=== PATIENT | female | born 1985 | race Two or more races ===

== ENCOUNTER 2021-09-11 15:22 | Emergency (ER) | payer OTHER ==
[2021-09-11 15:39] VITALS: BP 120/74; PULSE 81; TEMP 97.8; BMI 23.8
[2021-09-11] MEDS ORDERED: METHOTREXATE SODIUM/PF 25 MG/ML VIAL IM ONE ×2 (16:48→19:26)
[2021-09-11] MEDS ORDERED: LORazepam 1 MG TABLET PO ONE (17:07)
[2021-09-11] MEDS ORDERED: ONDANSETRON *ODT* 4 MG TABLET SL ONE (17:07)
[2021-09-11] MEDS ORDERED: ONDANSETRON *ODT* 4 MG TABLET ONE (17:08)
[2021-09-11] MEDS ORDERED: LORazepam 1 MG TABLET ONE (17:09)
[2021-09-11 18:11] LABS: BASO % 0.4 % (0-2.0); EOS % 0.4 % (0-4.5); HEMATOCRIT 40.2 % (32.4-45.2); HEMOGLOBIN 13.8 GM/dL (10.7-15.3); LYMPH % 32.6 % (8-40); MCH 31.1 pg (25.7-33.7); MCHC 34.4 g/dl (32.0-36.0); MEAN CELL VOLUME 90.6 fl (80-96); MEAN PLT VOLUME 7.5 fl (7.5-11.1); MONO % 5.3 % (3.8-10.2); NEUT % 61.3 % (42.8-82.8); PLATELET COUNT 325 10^3/uL (134-434); RBC 4.43 M/mm3 (3.60-5.2); RDW 12.3 % (11.6-15.6); WHITE BLOOD COUNT 12.8 K/mm3 (4.0-10.0)
[2021-09-11 18:33] LABS: INR 1.01 (0.83-1.09); PROTHROMBIN TIME (PATIENT) 11.6 SEC (9.7-13.0)
[2021-09-11 18:38] LABS: ALBUMIN 3.7 g/dl (3.4-5.0); BLOOD UREA NITROGEN 4.9 mg/dL (7-18); CALCIUM 8.8 mg/dL (8.5-10.1)
[2021-09-11 18:42] LABS: CREATININE 0.6 mg/dL (0.55-1.3)
[2021-09-11 18:43] LABS: BILIRUBIN,TOTAL 0.2 mg/dL (0.2-1); TOT PROT 7.3 g/dl (6.4-8.2)
== END 2021-09-11 21:59 | disposition home or self-care (01) ==
LOC: JER 15:22
DX: O00.102 Left tubal pregnancy without intrauterine pregnancy (principal)
CPT/HCPCS: 36415; 76817-TC; 80053; 84702; 85025; 85610; 86850; 86900; 86901; 99284-25; J9260; Q0162

== ENCOUNTER 2022-04-18 13:38 | Emergency (ER) | payer OTHER ==
[2022-04-18 13:45] VITALS: RESP 18; TEMP 98.2; BMI 25.7
[2022-04-18 14:47] LABS: BASO % 0.5 % (0-2.0); EOS % 0.6 % (0-4.5); HEMATOCRIT 42.2 % (32.4-45.2); HEMOGLOBIN 14.9 GM/dL (10.7-15.3); LYMPH % 34.5 % (8-40); MCH 31.6 pg (25.7-33.7); MCHC 35.3 g/dl (32.0-36.0); MEAN CELL VOLUME 89.5 fl (80-96); MEAN PLT VOLUME 7.2 fl (7.5-11.1); MONO % 6.5 % (3.8-10.2); NEUT % 57.9 % (42.8-82.8); PLATELET COUNT 325 10^3/uL (134-434); RBC 4.72 M/mm3 (3.60-5.2); RDW 12.3 % (11.6-15.6); WHITE BLOOD COUNT 9.3 K/mm3 (4.0-10.0)
[2022-04-18 14:50] LABS: HCG,QUALITATIVE URINE Negative
[2022-04-18 14:57] LABS: EPI CELLS 5 /uL (0-25.1); HYALINE CASTS 0 /uL (0-3.1); PH,URINE 7.5 (5.0-8.0); URINE APPEARANCE CLEAR; URINE BACTERIA 73 /uL (0-1359); URINE BILIRUBIN NEGATIVE (NEGATIVE); URINE COLOR YELLOW; URINE GLUCOSE (UA) NEGATIVE (NEGATIVE); URINE KETONE NEGATIVE (NEGATIVE); URINE LEUK ESTERASE NEGATIVE (NEGATIVE); URINE NITRITE NEGATIVE (NEGATIVE); URINE PROTEIN NEGATIVE (NEGATIVE); URINE RBC 43 /uL (0-23.9); URINE UROBILINOGEN 0.2 mg/dL (0.2-1.0); URINE WBC 3 /uL (0-25.8)
[2022-04-18 15:15] LABS: ALBUMIN 3.7 g/dl (3.4-5.0); BLOOD UREA NITROGEN 6.9 mg/dL (7-18); CALCIUM 9.1 mg/dL (8.5-10.1)
[2022-04-18 15:18] LABS: CREATININE 0.6 mg/dL (0.55-1.3)
[2022-04-18 15:20] LABS: BILIRUBIN,TOTAL 0.4 mg/dL (0.2-1); TOT PROT 7.6 g/dl (6.4-8.2)
[2022-04-18] MEDS ORDERED: PANTOPRAZOLE 40 MG TABLET PO ONE (17:33)
[2022-04-18 17:57] VITALS: BP 130/65; PULSE 65
== END 2022-04-18 17:58 | disposition home or self-care (01) ==
LOC: JER 13:38
DX: O23.41 Unspecified infection of urinary tract in pregnancy, first trimester (principal); Z3A.01 Less than 8 weeks gestation of pregnancy
CPT/HCPCS: 36415; 76817-TC; 80053; 81003; 84702; 84703; 85025; 87086; 99284-25

== ENCOUNTER 2022-04-20 17:36 | Emergency (ER) | payer OTHER ==
[2022-04-20 17:43] VITALS: BP 113/76; PULSE 82; RESP 18; TEMP 97.8; BMI 25.7
[2022-04-20 20:14] LABS: BASO % 0.3 % (0-2.0); EOS % 0.8 % (0-4.5); HEMATOCRIT 43.5 % (32.4-45.2); HEMOGLOBIN 14.5 GM/dL (10.7-15.3); LYMPH % 36.2 % (8-40); MCH 30.6 pg (25.7-33.7); MCHC 33.4 g/dl (32.0-36.0); MEAN CELL VOLUME 91.6 fl (80-96); MEAN PLT VOLUME 8.1 fl (7.5-11.1); NEUT % 56.7 % (42.8-82.8); PLATELET COUNT 347 10^3/uL (134-434); RBC 4.75 M/mm3 (3.60-5.2); RDW 12.1 % (11.6-15.6); WHITE BLOOD COUNT 11.6 K/mm3 (4.0-10.0)
[2022-04-20 20:37] LABS: ALBUMIN 3.9 g/dl (3.4-5.0); BLOOD UREA NITROGEN 7.8 mg/dL (7-18); CALCIUM 9.4 mg/dL (8.5-10.1)
[2022-04-20 20:40] LABS: CREATININE 0.6 mg/dL (0.55-1.3)
[2022-04-20 20:42] LABS: BILIRUBIN,TOTAL 0.5 mg/dL (0.2-1); TOT PROT 8.1 g/dl (6.4-8.2)
== END 2022-04-20 21:45 | disposition home or self-care (01) ==
LOC: JER 17:36
DX: O26.851 Spotting complicating pregnancy, first trimester (principal); Z3A.01 Less than 8 weeks gestation of pregnancy
CPT/HCPCS: 36415; 76817-TC; 80053; 84702; 85025; 86850; 86900; 86901; 99284-25

== ENCOUNTER 2022-04-27 14:18 | Emergency (ER) | payer OTHER ==
[2022-04-27 14:27] VITALS: RESP 18; BMI 24.0
[2022-04-27 18:26] VITALS: TEMP 97.8
[2022-04-27] MEDS ORDERED: ACETAMINOPHEN 500 MG TABLET (FP) PO ONE (18:40)
[2022-04-27] MEDS ORDERED: ACETAMINOPHEN 500 MG TABLET (FP) ONE (18:51)
[2022-04-27 19:08] LABS: URINE APPEARANCE CLEAR; URINE BILIRUBIN NEGATIVE (NEGATIVE); URINE COLOR YELLOW; URINE GLUCOSE (UA) NEGATIVE (NEGATIVE); URINE KETONE NEGATIVE (NEGATIVE); URINE LEUK ESTERASE NEGATIVE (NEGATIVE); URINE NITRITE NEGATIVE (NEGATIVE); URINE PROTEIN NEGATIVE (NEGATIVE); URINE UROBILINOGEN 0.2 mg/dL (0.2-1.0)
[2022-04-27] MEDS ORDERED: METHOTREXATE SODIUM/PF 25 MG/ML VIAL IM ONE (20:20)
[2022-04-27 21:27] VITALS: BP 110/59; PULSE 86
== END 2022-04-27 22:02 | disposition home or self-care (01) ==
LOC: JERFT 14:18 → JER 14:18 → JERFT 22:02
DX: O00.90 Unspecified ectopic pregnancy without intrauterine pregnancy (principal)
CPT/HCPCS: 36415; 76817-TC; 81003; 84702; 87086; 99284-25; J9260

== ENCOUNTER 2022-04-30 18:31 | Emergency (ER) | payer OTHER ==
[2022-04-30 18:39] VITALS: BP 121/80; PULSE 85; RESP 16; TEMP 97.5; BMI 24.1
[2022-04-30] MEDS ORDERED: METHOTREXATE SODIUM/PF 25 MG/ML VIAL IM ONE (22:04)
== END 2022-04-30 22:39 | disposition home or self-care (01) ==
LOC: JER 18:31 → JERFT 18:31 → JER 22:39
PROC: 3E023GC Introduction of Other Therapeutic Substance into Muscle, Percutaneous Approach (ICD-10-PCS; principal; 2022-04-30)
DX: O00.90 Unspecified ectopic pregnancy without intrauterine pregnancy (principal)
CPT/HCPCS: 36415; 76817-TC; 84702; 96372; 99284-25; J9260

== ENCOUNTER 2022-05-04 14:55 | Emergency (ER) | payer OTHER ==
[2022-05-04 15:10] VITALS: BP 116/79; PULSE 77; RESP 18; TEMP 98; BMI 24.1
== END 2022-05-04 18:31 | disposition home or self-care (01) ==
LOC: JERFT 14:55
DX: O00.90 Unspecified ectopic pregnancy without intrauterine pregnancy (principal); Z3A.00 Weeks of gestation of pregnancy not specified
CPT/HCPCS: 36415; 84702; 99283-25

== ENCOUNTER 2022-05-11 10:41 | Emergency (ER) | payer OTHER ==
[2022-05-11 10:52] VITALS: BP 106/51; PULSE 77; RESP 17; TEMP 97.9; BMI 24.9
[2022-05-11 14:38] LABS: BASO % 0.5 % (0-2.0); EOS % 1.2 % (0-4.5); HEMATOCRIT 41.6 % (32.4-45.2); HEMOGLOBIN 14.2 GM/dL (10.7-15.3); LYMPH % 35.9 % (8-40); MCH 30.7 pg (25.7-33.7); MCHC 34.1 g/dl (32.0-36.0); MEAN CELL VOLUME 90.1 fl (80-96); MEAN PLT VOLUME 7.5 fl (7.5-11.1); MONO % 5.5 % (3.8-10.2); NEUT % 56.9 % (42.8-82.8); PLATELET COUNT 320 10^3/uL (134-434); RBC 4.62 M/mm3 (3.60-5.2); RDW 12.4 % (11.6-15.6); WHITE BLOOD COUNT 10.3 K/mm3 (4.0-10.0)
[2022-05-11 15:07] LABS: ALBUMIN 3.6 g/dl (3.4-5.0)
[2022-05-11 15:10] LABS: CREATININE 0.5 mg/dL (0.55-1.3)
[2022-05-11 15:11] LABS: BILIRUBIN,TOTAL 0.5 mg/dL (0.2-1); TOT PROT 7.3 g/dl (6.4-8.2)
== END 2022-05-11 16:39 | disposition home or self-care (01) ==
LOC: JER 10:41
DX: R10.30 Lower abdominal pain, unspecified (principal)
CPT/HCPCS: 36415; 76817-TC; 80053; 84702; 85025; 99284-25

== ENCOUNTER 2022-10-24 15:41 | Emergency (ER) | payer OTHER ==
[2022-10-24 16:12] VITALS: BP 117/64; PULSE 90; RESP 18; TEMP 98.4; BMI 25.0
[2022-10-24 17:56] LABS: BASO % 0.4 % (0-2.0); EOS % 0.7 % (0-4.5); HEMATOCRIT 39.8 % (32.4-45.2); HEMOGLOBIN 14.2 GM/dL (10.7-15.3); LYMPH % 33.4 % (8-40); MCH 31.7 pg (25.7-33.7); MCHC 35.6 g/dl (32.0-36.0); MEAN PLT VOLUME 7.4 fl (7.5-11.1); NEUT % 58.5 % (42.8-82.8); PLATELET COUNT 338 10^3/uL (134-434); RBC 4.47 M/mm3 (3.60-5.2); RDW 12.8 % (11.6-15.6); WHITE BLOOD COUNT 13.6 K/mm3 (4.0-10.0)
[2022-10-24 18:15] LABS: ALBUMIN 3.6 g/dl (3.4-5.0); CALCIUM 9.2 mg/dL (8.5-10.1)
[2022-10-24 18:16] LABS: BLOOD UREA NITROGEN 9.2 mg/dL (7-18)
[2022-10-24 18:19] LABS: EPI CELLS 3 /uL (0-25.1); HYALINE CASTS 0 /uL (0-3.1); URINE APPEARANCE CLEAR; URINE BACTERIA 74 /uL (0-1359); URINE BILIRUBIN NEGATIVE (NEGATIVE); URINE COLOR YELLOW; URINE GLUCOSE (UA) NEGATIVE (NEGATIVE); URINE KETONE NEGATIVE (NEGATIVE); URINE LEUK ESTERASE NEGATIVE (NEGATIVE); URINE NITRITE NEGATIVE (NEGATIVE); URINE PROTEIN NEGATIVE (NEGATIVE); URINE RBC 16 /uL (0-23.9); URINE UROBILINOGEN 0.2 mg/dL (0.2-1.0); URINE WBC 2 /uL (0-25.8)
[2022-10-24 18:19] LABS: CREATININE 0.5 mg/dL (0.55-1.3)
[2022-10-24 18:20] LABS: BILIRUBIN,TOTAL 0.4 mg/dL (0.2-1); TOT PROT 7.5 g/dl (6.4-8.2)
== END 2022-10-24 18:53 | disposition home or self-care (01) ==
LOC: JER 15:41
DX: O20.9 Hemorrhage in early pregnancy, unspecified (principal); Z3A.09 9 weeks gestation of pregnancy
CPT/HCPCS: 36415; 76801-TC; 80053; 81003; 85025; 87086; 99284-25

== ENCOUNTER 2023-05-30 23:00 | Inpatient (IN) | payer OTHER ==
[2023-05-31] MEDS ORDERED: ELECTROLYTE-148 SOLN 1,000 ML IV SCH ×2 (00:05→06:00)
[2023-05-31 00:37] LABS: BASO % 0.7 % (0-2.0); EOS % 1.5 % (0-4.5); HEMATOCRIT 37.6 % (32.4-45.2); HEMOGLOBIN 13.6 GM/dL (10.7-15.3); MCH 32.1 pg (25.7-33.7); MCHC 36.2 g/dl (32.0-36.0); MEAN CELL VOLUME 88.5 fl (80-96); MONO % 9.5 % (3.8-10.2); NEUT % 54.3 % (42.8-82.8); PLATELET COUNT 274 10^3/uL (134-434); RBC 4.25 M/mm3 (3.60-5.2); RDW 13.6 % (11.6-15.6); WHITE BLOOD COUNT 9.3 K/mm3 (4.0-10.0)
[2023-05-31 00:38] LABS: INR 0.99 (0.83-1.09); PROTHROMBIN TIME (PATIENT) 11.5 SEC (9.7-13.0)
[2023-05-31 00:41] LABS: BLOOD UREA NITROGEN 8.6 mg/dL (7-18); CALCIUM 9.5 mg/dL (8.5-10.1); POTASSIUM 3.7 mmol/L (3.5-5.1)
[2023-05-31 00:45] LABS: CREATININE 0.6 mg/dL (0.55-1.3)
[2023-05-31 01:27] VITALS: BMI 26.7
[2023-05-31] MEDS ORDERED: FENTANYL/BUPIVACAINE/NS/PF - PCEA - 50 ML DISP.SYRIN EP ONE ×3 (02:49→12:09)
[2023-05-31] MEDS ORDERED: FENTANYL/BUPIVACAINE/NS/PF - PCEA - 50 ML DISP.SYRIN EP SCH (03:00)
[2023-05-31] MEDS ORDERED: NALOXONE HCL 0.4 MG/ML VIAL IVPUSH PRN (03:00)
[2023-05-31] MEDS ORDERED: BUPIVACAINE HCL/PF 0.25% (2.5MG/ML) 10 ML VIAL ONE ×2 (03:01→12:21)
[2023-05-31] MEDS ORDERED: LIDO 2%/EPI 1:200000 PRESRVFRE (20 ML SDVIAL) ONE (03:02)
[2023-05-31] MEDS ORDERED: ePHEDrine SULFATE 50 MG/1 ML AMPULE ONE (03:21)
[2023-05-31] MEDS ORDERED: BENZOCAINE 20% 57 GM BOTTLE TP PRN (06:56)
[2023-05-31] MEDS ORDERED: oxyCODONE HCL 5 MG TABLET PO PRN (06:56)
[2023-05-31] MEDS ORDERED: WITCH HAZEL 50% (TUCKS) 40 PAD/JAR PAD TP PRN (06:56)
[2023-05-31] MEDS ORDERED: BENZOCAINE 28 GM HEMORRHOIDAL OINTMENT TP PRN (06:56)
[2023-05-31] MEDS ORDERED: BISACODYL 10 MG SUPP.RECT RC PRN (06:56)
[2023-05-31] MEDS ORDERED: METHYLERGONOVINE MALEATE 0.2 MG/1 ML AMP IM PRN (06:56)
[2023-05-31] MEDS ORDERED: OXYTOCIN 20 UNITS in 0.9% NS 20 UNIT/1,000 ML INFUS.BAG IV SCH (07:00)
[2023-05-31] MEDS: FERROUS SO4 325 MG TABLET (FP) PO SCH ×3 (08:49→18:10)
[2023-05-31] MEDS: PRENATAL VITAMINS W/ FOLIC ACID TABLET (FP) PO SCH (09:44)
[2023-05-31] MEDS ORDERED: OXYTOCIN 20 UNITS in 0.9% NS 20 UNIT/1,000 ML INFUS.BAG IV ONE (12:27)
[2023-05-31] MEDS ORDERED: LIDOCAINE HCL 1% PRESERVATIVE FREE - 30ML VIAL ONE (12:28)
[2023-05-31 14:01] LABS: POC NITRAZINE POS
[2023-05-31 15:33] LABS: CORD HCO3 21.8 mmHg (20-29); CORD PCO2 64.7 mmHg (30-78); CORD pH 7.145 (7.14-7.44)
[2023-05-31 15:34] LABS: CORD BASE EXCESS -7.3 mmol/L (0-2); CORD HCO3 21.7 mmHg (20-29); CORD pH 7.198 (7.14-7.44)
[2023-05-31] MEDS: IBUPROFEN 600 MG TABLET (FP) PO PRN (18:10)
[2023-05-31] MEDS: ACETAMINOPHEN 325 MG TABLET (FP) PO PRN (21:27)
[2023-05-31 22:25] VITALS: RESP 18
[2023-06-01] MEDS: ACETAMINOPHEN 325 MG TABLET (FP) PO PRN (06:14)
[2023-06-01 08:37] LABS: BASO % 0.3 % (0-2.0); EOS % 0.8 % (0-4.5); HEMATOCRIT 33.3 % (32.4-45.2); HEMOGLOBIN 11.4 GM/dL (10.7-15.3); LYMPH % 20.6 % (8-40); MCHC 34.3 g/dl (32.0-36.0); MEAN CELL VOLUME 90.5 fl (80-96); MEAN PLT VOLUME 8.1 fl (7.5-11.1); MONO % 7.1 % (3.8-10.2); NEUT % 71.2 % (42.8-82.8); PLATELET COUNT 216 10^3/uL (134-434); RBC 3.67 M/mm3 (3.60-5.2); RDW 13.1 % (11.6-15.6); WHITE BLOOD COUNT 12.9 K/mm3 (4.0-10.0)
[2023-06-01] MEDS: FERROUS SO4 325 MG TABLET (FP) PO SCH ×2 (09:19→11:47)
[2023-06-01] MEDS: IBUPROFEN 600 MG TABLET (FP) PO PRN (09:19)
[2023-06-01] MEDS: PRENATAL VITAMINS W/ FOLIC ACID TABLET (FP) PO SCH (09:19)
[2023-06-01 14:54] VITALS: BP 99/60; PULSE 73; TEMP 97.9
[2023-06-01] MEDS ORDERED: SENNOSIDES/DOCUSATE COMBO (SENNA PLUS) TABLET (UD) PO PRN (22:00)
== END 2023-06-01 15:35 | disposition home or self-care (01) | DRG 560 ==
LOC: JLDR 23:00 → J3W 05-31 16:27
PROVIDERS: ADMIT Obstetrics & Gynecology; ATTEND Obstetrics & Gynecology
PROC: 10E0XZZ Delivery of Products of Conception, External Approach (ICD-10-PCS; principal; 2023-05-31)
PROC: 0KQM0ZZ Repair Perineum Muscle, Open Approach (ICD-10-PCS; 2023-05-31)
DX: O48.0 Post-term pregnancy (principal); Z3A.40 40 weeks gestation of pregnancy; O70.1 Second degree perineal laceration during delivery; O77.0 Labor and delivery complicated by meconium in amniotic fluid; Z37.0 Single live birth
CPT/HCPCS: 36415; 36600; 80048; 82803; 83986-QW; 85025; 85610; 85730; 86780; 86850; 86900; 86901

== ENCOUNTER 2025-01-06 11:21 | Emergency (ER) | payer OTHER ==
[2025-01-06 11:32] VITALS: BP 113/73; PULSE 76; RESP 16; TEMP 98.1; BMI 24.3
[2025-01-06] MEDS ORDERED: ACETAMINOPHEN INJECTION 100 ML ONE (12:04)
[2025-01-06 12:07] LABS: EPI CELLS 23 /uL (0-25.1); HYALINE CASTS 0 /uL (0-3.1); PH,URINE 8.5 (5.0-8.0); URINE APPEARANCE CLEAR; URINE BACTERIA 493 /uL (0-1359); URINE BILIRUBIN NEGATIVE (NEGATIVE); URINE COLOR YELLOW; URINE GLUCOSE (UA) NEGATIVE (NEGATIVE); URINE KETONE NEGATIVE (NEGATIVE); URINE LEUK ESTERASE TRACE (NEGATIVE); URINE NITRITE NEGATIVE (NEGATIVE); URINE PROTEIN NEGATIVE (NEGATIVE); URINE RBC 48 /uL (0-23.9); URINE UROBILINOGEN 0.2 mg/dL (0.2-1.0); URINE WBC 11 /uL (0-25.8)
[2025-01-06 12:07] LABS: ABSOLUTE IMMATURE GRANULOCYTES 0.04 x10^3/uL (0.0-0.031); BASOPHILS # 0.03 x10^3/uL (0.01-0.08); EOSINOPHIL % 0.8 % (0.7-5.8); EOSINOPHILS # 0.07 x10^3/uL (0.04-0.36); HEMATOCRIT 39.5 % (34.1-44.9); HEMOGLOBIN 13.6 g/dL (11.2-15.7); MCHC 34.4 g/dl (32.2-35.5); MEAN CELL VOLUME 89.8 fl (79.4-94.8); MEAN PLT VOLUME 9.3 fl (9.4-12.3); MONOCYTE # 0.58 x10^3/uL (0.24-0.86); MONOCYTE % 6.3 % (4.7-12.5); PLATELET COUNT 305 x10^3/uL (182-369); RDW 11.9 % (12.1-16.8)
[2025-01-06] MEDS: SODIUM CHLORIDE 1,000 ML IV ONE (12:10)
[2025-01-06] MEDS: ACETAMINOPHEN 1000 MG/100 ML BAG IVPB ONE (12:10)
[2025-01-06 12:41] LABS: POTASSIUM 3.9 mmol/L (3.5-5.1)
[2025-01-06 12:43] LABS: CALCIUM 9.2 mg/dL (8.5-10.1)
[2025-01-06 12:44] LABS: ALBUMIN 3.3 g/dl (3.4-5.0); BLOOD UREA NITROGEN 7.5 mg/dL (7-18)
[2025-01-06 12:47] LABS: CREATININE 0.5 mg/dL (0.55-1.3)
[2025-01-06 12:49] LABS: BILIRUBIN,TOTAL 0.4 mg/dL (0.2-1); TOT PROT 6.8 g/dl (6.4-8.2)
[2025-01-06 15:08] LABS: URINE APPEARANCE CLEAR; URINE BILIRUBIN NEGATIVE (NEGATIVE); URINE COLOR YELLOW; URINE GLUCOSE (UA) NEGATIVE (NEGATIVE); URINE KETONE NEGATIVE (NEGATIVE); URINE LEUK ESTERASE NEGATIVE (NEGATIVE); URINE NITRITE NEGATIVE (NEGATIVE); URINE PROTEIN NEGATIVE (NEGATIVE); URINE UROBILINOGEN 0.2 mg/dL (0.2-1.0)
== END 2025-01-06 15:48 | disposition home or self-care (01) ==
LOC: JER 11:21
DX: O09.521 Supervision of elderly multigravida, first trimester (principal); O26.891 Other specified pregnancy related conditions, first trimester; R10.9 Unspecified abdominal pain; Z3A.08 8 weeks gestation of pregnancy
CPT/HCPCS: 36415; 76775-TC; 76817-TC; 80053; 81003; 84702; 85025; 99284-25; J0131